=== PATIENT | female | born 1955 | race Hispanic/Latino ===

== ENCOUNTER 2019-02-20 09:04 | Day surgery (SDC) | payer BC ==
[~2019-02-20] VITALS: Ht 157.5 cm; Wt 68.0 kg
[~2019-02-20 09:04] MED LIST: DAILY MULTIPLE1 EACH PO; VITAMIN C100 MG PO; VITAMIN D1000 UNI1 PO
--- NOTE | 2019-02-20 10:54 | NUR ---
02/20/19 1054 Malka Oliver 1050 PATIENT ARRIVES TO PACU SLEEPING, AWAKENS WITH VERBAL STIMULI, THEN BACK TO SLEEP. RESP EVEN AND UNLABORED. ROOM AIR SATS >95%.
--- NOTE | 2019-02-21 12:40 | OR ---
[facility] [address] [place], [place] [address] Signed DATE OF OPERATION: 02/20/2019 SURGEON: Angelica Marrero MD PREOPERATIVE DIAGNOSIS: Surveillance colonoscopy, history of polyps (2017), tubular adenomas. POSTOPERATIVE DIAGNOSIS: Polyps x3, cecum and right colon. PROCEDURE: Total colonoscopy to cecum with snare polypectomy x2 and cold morcellation polypectomy x1. ANESTHESIA: Intravenous sedation, fentanyl 100 mcg, Versed 5 mg. INDICATION: This 63-year-old woman is a patient of DIANE Sawyer, of [place], [place]. She has undergone colonoscopy in the past and found to have polyps. In 2017, two tubular adenomas were excised. She is admitted at this time to undergo surveillance colonoscopy, understand the risks of bleeding, infection, and perforation. FINDINGS: The prep was good. Complete colonoscopy was undertaken to the cecum without question. Three polyps were seen in total, one larger than the others about 1 cm. The other two about 6 mm, all were excised completely. The remaining colon was otherwise normal. DESCRIPTION OF PROCEDURE: The patient was brought to the endoscopy suite and placed in lateral decubitus position, given intravenous sedation to the point of slurred speech and nystagmus. Digital rectal examination was normal. An Olympus video colonoscope was passed in the rectum and manipulated throughout the colon ultimately intubating the cecum itself. A small polyp was noted in the cecum, was excised with cold morcellation technique. The scope was withdrawn further and a larger sessile polyp was noted in the mid right colon. This was excised with cold snare polypectomy technique. The specimen was passed for Pathology as well. Further withdrawal to the distal right colon showed a small polyp, which was additionally excised with cold snare technique. Careful withdrawal of scope showed no other findings Electronically Signed By: ANGELICA MARRERO MD 02/21/19 1240 PATIENT NAME: ALIZE NELSON OPERATIVE REPORT DATE OF : 51 REPORT #: [id number] PHYSICIAN: ANGELICA MARRERO MD PCP: LYLY DELGADO REPORT IS CONFIDENTIAL AND NOT TO BE RELEASED WITHOUT AUTHORIZATION [facility] [address] [place] [address] [place], [place] [address] Signed of concern. The scope was removed. The patient was ultimately taken to recovery room in good condition. CONCLUDING DIAGNOSIS: Polyps x3. PLAN: Recommend repeat colonoscopy in 3 years sooner if clinically indicated. She will return to the ongoing care of Lyly Delgado. MD ALEXANDRIA Fiore/AJAY /[id number] cc: DIANE Falk Copies: LYLY DELGADO ~ Electronically Signed By: ANGELICA MARRERO MD 02/21/19 1240 PATIENT NAME: ALIZE NELSON OPERATIVE REPORT DATE OF : 51 REPORT #: [id number] PHYSICIAN: ANGELICA MARRERO MD PCP: LYLY DELGADO REPORT IS CONFIDENTIAL AND NOT TO BE RELEASED WITHOUT AUTHORIZATION
--- NOTE | 2019-02-23 15:45 | PATH ---
[facility] [address] [facility] [place], [place] [address] Signed SPECIMEN(S): A CECUM POLYP SPECIMEN(S): B ASCENDING POLYP SPECIMEN(S): C ASCENDING POLYP SPECIMEN SOURCE: A. CECUM POLYP B. ASCENDING POLYP C. ASCENDING POLYP CLINICAL HISTORY: Preop: History polyp, surveillance. Postop: Polyps x3. MICROSCOPIC DESCRIPTION: Histologic sections of all submitted blocks are examined by light microscopy. These findings, together with the gross examination, support the pathologic diagnosis. FINAL PATHOLOGIC DIAGNOSIS: A. Mucosa, cecum, biopsy: - No microscopic pathologic diagnosis (Polyp, clinical. See comment). B. Mucosa, ascending colon, biopsy: - Tubular adenoma. C. Mucosa, ascending colon, biopsy: - Tubular adenoma. COMMENT: A Multiple sections over three slides are examined. No adenomatous or hyperplastic change is seen. LJA:cml:C2NR GROSS DESCRIPTION: Three specimens are received in three containers, labeled "MA." A. The specimen, labeled "MA, cecal polyp," is received in formalin and consists of 0.2 cm in greatest dimension irregular caballero-white soft tissue fragment. The specimen is entirely submitted in cassette (A1). B. The specimen, labeled "MA, right colon polyp," is received in formalin and consists of a 0.3 cm greatest dimension irregular caballero-white soft tissue fragment. The specimen is entirely submitted in cassette (B1). C. The specimen, labeled "MA, right colon polyp," is received in formalin and consists of a 0.2 cm greatest dimension irregular caballero-white soft tissue PATIENT NAME: ALIZE NELSON PATHOLOGY DATE OF : 51 REPORT #: [id number] PHYSICIAN: CLARA CLIFTON PCP: NOEMI DELGADO REPORT IS CONFIDENTIAL AND NOT TO BE RELEASED WITHOUT AUTHORIZATION [facility] [address] [id number] Signed fragment. The specimen is entirely submitted in cassette (C1). AR (under the direct supervision of a pathologist) The Gross Description was prepared using a voice recognition system. The report was reviewed for accuracy; however, sound-alike word errors, addition and/or deletions may occur. If there is any question about this report, please contact Client Services. PERFORMING LABORATORY: The technical component was performed by [facility] [address] (Tile Fitter: Chrissy Cardona MD; CLIA# [id number]). [facility] [address] [address] (Tile Fitter: Forrest Hong MD; CLIA# [id number]). Diagnostician: Forrest Hong MD Pathologist Electronically Signed 02/23/2019 Copies: ~ PATIENT NAME: ALIZE NELSON PATHOLOGY DATE OF : 51 REPORT #: [id number] PHYSICIAN: CLARA PATHOLOGY PCP: NOEMI DELGADO REPORT IS CONFIDENTIAL AND NOT TO BE RELEASED WITHOUT AUTHORIZATION
== END 2019-02-20 11:34 | disposition home or self-care (01) ==
LOC: OPS 09:04 → DS 09:04 → OPS 10:30
PROVIDERS: Surgery
PROC: 0DBH8ZZ Excision of Cecum, Via Natural or Artificial Opening Endoscopic (ICD-10-PCS; 2019-02-20)
PROC: 0DBK8ZZ Excision of Ascending Colon, Via Natural or Artificial Opening Endoscopic (ICD-10-PCS; principal; 2019-02-20 10:30)
DX: Z12.11 Encounter for screening for malignant neoplasm of colon (principal); D12.2 Benign neoplasm of ascending colon; K63.5 Polyp of colon; E55.9 Vitamin D deficiency, unspecified; E78.2 Mixed hyperlipidemia; K21.9 Gastro-esophageal reflux disease without esophagitis; Z86.010 Personal history of colon polyps; Z80.0 Family history of malignant neoplasm of digestive organs
CPT/HCPCS: 99153; G0500; J2250; J3010; J7120

== ENCOUNTER 2024-05-01 12:19 | Emergency (ER) | payer MEDICARE ==
[~2024-05-01] VITALS: Ht 157.5 cm; Wt 69.9 kg
[2024-05-01 14:53] LABS: BASOPHILS 1.7 % (0-2); EOSINOPHILS 2.6 % (0-6); HEMATOCRIT 44.2 % (35.0-50.0); HEMOGLOBIN 14.6 g/dL (12.0-18.0); LYMPHOCYTES 27.7 % (24-44); MCH 26.9 (27-36); MCHC 33.2 g/dl (30-36); MONOCYTES 7.5 % (0-12); NEUTROPHILS 60.5 % (39-80); PLATELET COUNT 281 K/uL (140-440); RBC 5.45 M/ul (4.3-5.7); RDW 14.5 (10.5-15.0)
[2024-05-01 15:10] LABS: ALBUMIN 3.5 g/dL (3.4-5.0); ALBUMIN/GLOBULIN RATIO 0.76 (1.1-2.4); ANION GAP 13.6 (7-21); BILIRUBIN, TOTAL 0.3 ng/dL (0.2-1.0); BUN/CREATININE RATIO 14.92 (6.0-28.6); CALCIUM 9.4 mg/dL (8.5-10.1); CREATININE, SERUM 0.67 mg/dL (0.55-1.02); POTASSIUM 4.6 mmol/L (3.5-5.1); PROTEIN, TOTAL 8.1 g/dL (6.4-8.2)
[2024-05-01] MEDS ORDERED: SODIUM CHLORIDE 0.9% 500 ML IV PRN (16:00)
[2024-05-01 16:25] LABS: BILIRUBIN, URINE NEGATIVE (negative); BLOOD/HGB, URINE NEGATIVE (Negative); KETONE, URINE NEGATIVE (Negative); LEUK ESTERASE, URINE TRACE (negative); NITRITE, URINE NEGATIVE (negative)
[2024-05-01 16:32] LABS: BACTERIA, URINE NONE SEEN /hpf (negative); CASTS, URINE NONE SEEN \\lpf; COLLECTION TYPE, URINE CLEAN CATCH; CRYSTALS, URINE NONE SEEN (0-1+); RED BLOOD CELLS, URINE 0-1 /hpf (0-5); REFLEX CULTURE, URINE No (No)
[2024-05-01 17:22] VITALS: BP 119/82
== END 2024-05-01 17:22 | disposition home or self-care (01) ==
LOC: ED 12:19
PROVIDERS: Emergency Medicine
DX: R10.31 Right lower quadrant pain (principal); R10.32 Left lower quadrant pain; R10.10 Upper abdominal pain, unspecified; Z90.710 Acquired absence of both cervix and uterus
CPT/HCPCS: 36415; 74177; 80053; 81001; 83690; 85025; 99284-25; J7040